=== PATIENT | female | born 1975 ===

== ENCOUNTER 2017-07-29 12:46 | Emergency (ER) | payer OTHER ==
[2017-07-29 13:12] VITALS: RESP 18; O2SAT 99
[2017-07-29] MEDS ORDERED: Alum-Mag Hydrox-Simethicone Susp (30 mL) PO STA (13:29)
[2017-07-29] MEDS ORDERED: Aluminum Hydroxide/Magnesium Hydroxide Susp (30 mL) ONE (13:41)
[2017-07-29 13:51] LABS: BASO # 0.1 K/uL (0.0-0.2); BASO % 1.1 % (0.0-2.0); EOS # 0.2 K/uL (0.0-0.7); EOS % 2.4 % (0.0-4.0); HEMOGLOBIN 13.9 g/dL (11.0-16.0); LYMPH # 2.1 K/uL (1.0-4.3); LYMPH % 26.4 % (20.0-40.0); MEAN CELL VOLUME 90.9 fL (81.0-99.0); MEAN CORPUSCULAR HEMOGLOBIN 30.9 pg (27.0-31.0); MEAN PLATELET VOLUME 8.5 fL (7.2-11.7); MONO # 0.6 K/uL (0.0-0.8); MONO % 7.4 % (0.0-10.0); NEUT # 4.9 K/uL (1.8-7.0); NEUT % 62.7 % (50.0-75.0); NRBC % 0.1 % (0.0-2.0); RBC 4.5 Mil/uL (3.80-5.20); RED CELL DISTRIBUTION WIDTH 13.2 % (11.5-14.5); WHITE BLOOD COUNT 7.8 K/uL (4.8-10.8)
[2017-07-29 13:55] LABS: HCG,QUALITATIVE URINE NEGATIVE (NEGATIVE)
[2017-07-29 14:07] LABS: ALB/GLOB RATIO 1.2 (1.0-2.1); ALBUMIN 4.2 g/dL (3.5-5.0); ALT/SGPT 21 U/L (9-52); AST/SGOT 37 U/L (14-36); BLOOD UREA NITROGEN 11 mg/dL (7-17); CALCIUM 9.2 mg/dl (8.6-10.4); GFR AFRICAN-AMERICAN > 60; GFR NON-AFRICAN AMERICAN > 60; LIPASE 86 U/L (23-300)
[2017-07-29 14:32] LABS: SQUAMOUS EPITHIAL < 1 /hpf (0-5); URINE BILIRUBIN NEGATIVE (NEGATIVE); URINE BLOOD 1+ (NEGATIVE); URINE CLARITY Clear (Clear); URINE COLOR Yellow (YELLOW); URINE GLUCOSE (UA) NORMAL (Normal); URINE LEUKOCYTE ESTERASE NEG Leu/uL (Negative); URINE PROTEIN NEGATIVE (NEGATIVE); URINE UROBILINOGEN NORMAL mg/dL (0.2-1.0)
--- NOTE | 2017-07-29 15:34 | C.PDOC ---
Time Seen by Provider: 07/29/17 13:20 Chief Complaint (Nursing): Abdominal Pain History Per: Patient Onset/Duration Of Symptoms: Days (few) Current Symptoms Are (Timing): Still Present Severity: Moderate Location Of Pain/Discomfort: LUQ Quality Of Discomfort: "Pain" Exacerbating Factors: Movement, Food Additional History Per: Prior Records Last Menstral Period: Now Past Medical History Reviewed: Historical Data, Nursing Documentation, Vital Signs Vital Signs: Last Vital Signs Temp 98.2 F 07/29/17 13:08 Pulse 78 07/29/17 13:08 Resp 18 07/29/17 13:08 BP 142/96 H 07/29/17 13:08 Pulse Ox 99 07/29/17 13:08 - Medical History PMH: No Chronic Diseases Surgical History: No Surg Hx Family History: States: Unknown Family Hx - Social History Hx Tobacco Use: No Hx Alcohol Use: No Hx Substance Use: No - Immunization History Hx Tetanus Toxoid Vaccination: Yes Hx Influenza Vaccination: No Hx Pneumococcal Vaccination: No Review Of Systems Except As Marked, All Systems Reviewed And Found Negative. Constitutional: Negative for: Fever, Weakness Respiratory: Negative for: Cough, Shortness of Breath, Hemoptysis Gastrointestinal: Negative for: Nausea, Vomiting, Diarrhea, Constipation, Melena , Hematochezia, Hematemesis Genitourinary: Negative for: Dysuria Musculoskeletal: Negative for: Neck Pain, Leg Pain Skin: Negative for: Rash Neurological: Negative for: Weakness, Numbness Physical Exam - Physical Exam Appears: Non-toxic, No Acute Distress Skin: Normal Color, Warm, Dry, No Rash Head: Atraumatic, Normacephalic Eye(s): bilateral: Normal Inspection, PERRL, EOMI Neck: Normal ROM, Supple Chest: Symmetrical, No Deformity, No Ecchymosis, No Subcutaneous Emphysema Cardiovascular: Rhythm Regular Respiratory: Normal Breath Sounds, No Accessory Muscle Use Gastrointestinal/Abdominal: Soft, Tenderness (mild LUQ), No Distention, No Guarding, No Rebound Back: No CVA Tenderness Extremity: Normal ROM, No Pedal Edema, No Calf Tenderness Neurological/Psych: Oriented x3, Normal Motor, Normal Sensation ED Course And Treatment - Laboratory Results Result Diagrams: 07/29/17 13:47 07/29/17 13:47 Lab Interpretation: No Acute Changes Urine POC: Negative O2 Sat by Pulse Oximetry: 99 Pulse Ox Interpretation: Normal - Radiology CXR: Viewed By Me, Read By Radiologist CXR Interpretation: Yes: No Acute Disease Progress - Interventions Interventions:: Observation - Medications Administered Oral: Antacid, H-2 nitin - Data Reviewed Data Reviewed: Lab, Diagnostic imaging, Old records - Patient Status Patient status: Mostly improved - Continuity of Care Discussed patient case with:: Patient, Family-HIPPA compliant, ED Nurse - Patient Plan Patient Plan: Discharge, F/U with PCP Disposition Counseled Patient/Family Regarding: Studies Performed, Diagnosis, Need For Followup, Rx Given - Disposition Referrals: Beena Olivera MD [Medical Doctor] - Flip Tate MD [Staff Provider] - Disposition: HOME/ ROUTINE Disposition Time: 15:36 Condition: IMPROVED Additional Instructions: Follow up with your doctor and with a Commercial [employer] Underwriter for further evaluation and treatment. Return to the ER if you develop fever, vomiting, shortness of breath, worsening of symptoms or if you have any other concerns. Prescriptions: Pantoprazole Sodium [Protonix] 40 mg PO DAILY #14 ect Instructions: Gastritis (DC) Print Language: TELUGU - Clinical Impression Clinical Impression: LUQ pain
[2017-07-29 15:46] VITALS: BP 109/69; PULSE 75; TEMP 98.1
== END 2017-07-29 15:49 | disposition home or self-care (01) ==
LOC: C.ER 12:46
DX: R10.12 Left upper quadrant pain (principal)

== ENCOUNTER 2017-07-30 15:39 | Emergency (ER) | payer OTHER ==
[2017-07-30 15:58] VITALS: BP 110/83; PULSE 74; RESP 18; TEMP 97.9; O2SAT 98
[2017-07-30] MEDS ORDERED: Magnesium Citrate Oral SOL (300 ml) PO ONE (16:22)
--- NOTE | 2017-07-30 16:25 | C.PDOC ---
History Of Present Illness 41 year old female presents to the ED for evaluation of cramping left upper quadrant abdominal pain. Patient was evaluated in this ED yesterday for the same complaint. She was discharged with Protonix and Pepcid, which she has been taking without relief. Patient's records from previous ER visit reviewed: patient underwent labwork and UA, which were unremarkable and CXR noted a large amount of stool in the abdomen. Patient denies fever, chills, nausea, vomiting. Time Seen by Provider: 07/30/17 16:03 Chief Complaint (Nursing): Abdominal Pain History Per: Patient History/Exam Limitations: no limitations Onset/Duration Of Symptoms: Days Current Symptoms Are (Timing): Still Present Location Of Pain/Discomfort: LUQ Quality Of Discomfort: Cramping, "Pain" Associated Symptoms: denies: Fever, Chills, Nausea, Vomiting Additional History Per: Patient Past Medical History Reviewed: Historical Data, Nursing Documentation, Vital Signs Vital Signs: Last Vital Signs Temp 97.9 F 07/30/17 15:55 Pulse 74 07/30/17 15:55 Resp 18 07/30/17 15:55 BP 110/83 07/30/17 15:55 Pulse Ox 98 07/30/17 23:06 - Medical History PMH: No Chronic Diseases Surgical History: No Surg Hx Family History: States: Unknown Family Hx - Social History Hx Tobacco Use: No Hx Alcohol Use: No Hx Substance Use: No - Immunization History Hx Tetanus Toxoid Vaccination: Yes Hx Influenza Vaccination: Yes (4 months ago 2016) Hx Pneumococcal Vaccination: No Review Of Systems Constitutional: Negative for: Fever, Chills Gastrointestinal: Positive for: Abdominal Pain (left upper quadrant ). Negative for: Nausea, Vomiting Physical Exam - Physical Exam Appears: Non-toxic, No Acute Distress Skin: Normal Color, Warm, Dry Head: Atraumatic, Normacephalic Eye(s): bilateral: Normal Inspection Oral Mucosa: Moist Neck: Supple Chest: Symmetrical, No Deformity, No Tenderness Cardiovascular: Rhythm Regular, No Murmur Respiratory: Normal Breath Sounds, No Rales, No Rhonchi, No Wheezing Gastrointestinal/Abdominal: Soft, No Guarding, No Rebound, Other (dull to percussion in epigastrium and tympanic to percussion in left upper quadrant. negative Jackson's sign, negative McBurney's point tendernes ) Extremity: Normal ROM, Capillary Refill (less than 2 seconds ) Neurological/Psych: Oriented x3, Normal Speech, Normal Cognition ED Course And Treatment O2 Sat by Pulse Oximetry: 98 (on RA) Pulse Ox Interpretation: Normal Progress Note: Magnesium Citrate PO administered. Medical Decision Making Medical Decision Making: seen yesterday for LUQ colicky abd pain ROS: + constipation since childhood w/u neg yesterday, preg neg. CXR neg, and shows 1/2 abd with +FOS PMHX: [place] nationality diet highly constipating. in past 2 days pt has eaten purely white rice, pork, platanos, potato, yucca (all tremendously constipating). Defer repeat w/u w informed consent to trial laxative now diet, exercise, and walking regimens extensively educated. Disposition Doctor Will See Patient In The: Office Counseled Patient/Family Regarding: Studies Performed, Diagnosis - Disposition Referrals: Beena Olivera MD [Medical Doctor] - Disposition: HOME/ ROUTINE Disposition Time: 16:25 Condition: GOOD Additional Instructions: sergio un purgante ahora- repita kelsie necessario- para evacuarse shira sergio mucho mas agua Come MENOS de arroz, platanos, jabichuelas, chidi, yucca- provocan estrenemiento tremendo y lo damos a pts' que TIENEN DIARRIA. 7 verduras y frutas crudas diarios (greg ensalada cuenta para 2) Camina rapido 5 meza por semana por 45 minutos Repita tratamiento de purgantes kelsie necessario (kelsie cada mes) si las sintomas regressan. Sigue con Dra Dale souza que te refiere por un [place] en 1-2 messes kelsie indicado. Instructions: Constipation, Adult (DC) Forms: [facility] (German) Print Language: CITIZEN OF [place] - Clinical Impression Clinical Impression: Colicky LUQ abdominal pain - Scribe Statement The provider has reviewed the documentation as recorded by the Scribe (Fatoumata Nolasco) Provider Attestation: All medical record entries made by the Scribe were at my direction and personally dictated by me. I have reviewed the chart and agree that the record accurately reflects my personal performance of the history, physical exam, medical decision making, and the department course for this patient. I have also personally directed, reviewed, and agree with the discharge instructions and disposition.
[2017-07-30] MEDS ORDERED: Magnesium Citrate Oral SOL (300 ml) ONE (16:27)
== END 2017-07-30 16:45 | disposition home or self-care (01) ==
LOC: C.ER 15:39
DX: R10.84 Generalized abdominal pain (principal)